=== PATIENT | male | born 1995 | race Caucasian/White ===

== ENCOUNTER 2017-02-10 21:23 | Emergency (ER) | payer OTHER ==
[2017-02-10 21:31] VITALS: BP 166/107; PULSE 100; RESP 20; TEMP 98.7
[2017-02-10] MEDS ORDERED: GELATIN SPONGE,ABSORB (SMALL) 1 EACH SPONGE TOPICAL STA (21:49)
--- NOTE | 2017-02-10 22:02 | ED ---
Wound/Laceration HPI - General Chief Complaint: Wound/Laceration Stated Complaint: thumb lac Time Seen by Provider: 02/10/17 21:36 Source: patient, RN notes reviewed Mode of arrival: ambulatory Limitations: no limitations - History of Present Illness Initial Comments: 22-year-old male presents emergency 5 chief complaint of right hand laceration. Patient was cutting with a molder meat and accidentally cut his thumb. Patient states he now has bleeding from the thumb. Patient states he is exam tenderness. Patient states that he has no other injuries from the incident. Patient denies any other symptoms. Patient denies pain. Patient states he is just noticed bleeding.Patient denies any recent fever, chills, shortness of breath, chest pain, back pain, abdominal pain, nausea vomiting, numbness or tingling, dysuria or hematuria, constipation or diarrhea, headaches or visual changes, or any other current symptoms. - Related Data Home Medications Medication Instructions Recorded Confirmed No Known Home Medications [No 02/10/17 02/10/17 Known Home Medications] Allergies Allergy/AdvReac Type Severity Reaction Status Date / Time No Known Allergies Allergy Verified 02/10/17 21:29 Review of Systems ROS Statement: Those systems with pertinent positive or pertinent negative responses have been documented in the HPI. ROS Other: All systems not noted in ROS Statement are negative. Past Medical History Past Medical History: No Reported History History of Any Multi-Drug Resistant Organisms: None Reported Past Surgical History: Tonsillectomy Past Psychological History: No Psychological Hx Reported Smoking Status: Never smoker Past Alcohol Use History: None Reported Past Drug Use History: None Reported General Exam - General Exam Comments Initial Comments: General: The patient is awake and alert, in no distress, and does not appear acutely ill. Neck: The neck is supple, there is no tenderness. Cardiovascular: There is a regular rate and rhythm. No murmur, rub or gallop is appreciated. Respiratory: Lungs are clear to auscultation, respirations are non-labored, breath sounds are equal. No wheezes, stridor, rales, or rhonchi. Musculoskeletal: Sensation intact to 2+ pulses of the right upper extremity. Patient has findings motion of the right thumb. He has. Avulsion type laceration. The nailbed is intact however there is some injury to the distal aspect of the nail. 5/5The muscle strength testing. Less than 2 capillary refill. Neurological: CN II-XII intact, There are no obvious motor or sensory deficits. Coordination appears grossly intact. Speech is normal. Skin: Skin is warm and dry and no rashes or lesions are noted. Psychiatric: Normal mood and affect. Limitations: no limitations Course Vital Signs 02/10/17 21:29 Temperature 98.7 F Pulse Rate 100 Respiratory 20 Rate Blood Pressure 166/107 O2 Sat by Pulse 100 Oximetry Medical Decision Making - Medical Decision Making 22-year-old male presents for an avulsion type laceration of his esophagus to the right thumb. This time patient underwent gel foam repair. We discussed care follow-up return parameters. We discussed all the patient's questions. He stated he understood and agreed and plan. This will be discharged home. Disposition Clinical Impression: Thumb laceration Disposition: HOME SELF-CARE Condition: Stable Instructions: Laceration (ED) Additional Instructions: Please use medication as discussed. Please follow up with family doctor if symptoms have not improved over the next two days. Please return to the emergency room if your symptoms increase or worsen or for any other concerns. Keep the bandage on for 2 days and then remove. Referrals: None,Stated [Primary Care Provider] - 1-2 days Brenda Arguello MD [STAFF PHYSICIAN] - 1-2 days Time of Disposition: 22:02
== END 2017-02-10 22:07 | disposition home or self-care (01) ==
LOC: EC 21:23
DX: S61.111A Laceration without foreign body of right thumb with damage to nail, initial encounter (principal); W31.82XA Contact with other commercial machinery, initial encounter; Y99.0 Civilian activity done for income or pay
CPT/HCPCS: 99282